=== PATIENT | male | born 1930 | race Two or more races ===

== ENCOUNTER 2016-10-12 19:31 | Emergency (ER) | payer SELFPAY ==
[2016-10-12] MEDS ORDERED: ACETAMINOPHEN 325 MG TABLET ONE (20:21)
[2016-10-12] MEDS ORDERED: SODIUM CHLORIDE 0.9% 500 ML ONE (20:21)
[2016-10-12 20:45] LABS: ABSOLUTE NEUTROPHIL COUNT 4.1 K/mm3 (1.8-7.7); BASO % 0.2 % (0.2-1.0); EOS % 0.6 % (0.9-2.9); HEMATOCRIT 36.7 % (32.0-52.0); HEMOGLOBIN 12.4 gm/l (14.0-18.0); IMM NEUT% 0.2 % (0-1); LYMPH # 0.7 (1.0-4.8); LYMPH % 13.6 % (15-45); MEAN CELL VOLUME 92.9 fl (80.0-94.0); MEAN CORPUSCULAR HEMOGLOBIN 31.4 pg (27.0-31.0); MEAN CORPUSCULAR HGB CONC 33.8 g/dl (33.0-37.0); MONO # 0.5 (0.0-0.8); MONO % 9.2 % (4-12); NEUT % 76.2 % (43-75); PLATELET COUNT 107 K/mm3 (130-400); RED CELL DISTRIBUTION WIDTH 12.2 % (11.5-14.5)
[2016-10-12 20:56] LABS: ALB/GLOB RATIO 0.9 (>1.0); ALBUMIN 3.6 gm/dL (3.5-5.7); CALCIUM 8.3 mg/dL (8.6-10.3)
--- NOTE | 2016-10-12 20:56 | RAD ---
10/12/2016 8:51 PM CHEST - 2 VIEWS History: Fever and weakness Comparison: None Findings: Two views of the chest are obtained. The lungs demonstrate some minimal patchy airspace disease at the left base worrisome for possible pneumonia though this may represent atelectasis given the low volumes. The cardiomediastinal silhouette is unremarkable.. The osseous structures are intact.. IMPRESSION: Low volumes with possible atelectasis at the left base versus pneumonia. Follow-up as clinically warranted.
[2016-10-12] MEDS ORDERED: Oseltamivir Phosphate 75 MG CAP ONE (21:32)
== END 2016-10-12 21:54 | disposition home or self-care (01) ==
LOC: ED 19:31
DX: J11.1 Influenza due to unidentified influenza virus with other respiratory manifestations (principal); R53.83 Other fatigue
CPT/HCPCS: 85025; 80053; 84484; 71020; 87804; 99283 ×2; A9270 ×2; J7040